=== PATIENT | female | born 1930 | race Caucasian/White ===

== ENCOUNTER 2017-07-26 07:51 | Inpatient (IN) | payer MEDICARE ==
[2017-07-26] VITALS (7 sets, daily range): BP systolic 123–178; BP diastolic 60–87; PULSE 63–73; RESP 16–18; TEMP 97.7–97.9; O2SAT 93–96
[~2017-07-26] VITALS: Ht 165.1 cm; Wt 86.4 kg
[2017-07-26] MEDS ORDERED: PHEN0.4T PO (08:15)
[2017-07-26] MEDS ORDERED: LEVO.1 PO (08:15)
[2017-07-26] MEDS ORDERED: BACT400T PO (08:15)
[2017-07-26] MEDS ORDERED: LISI10TA PO (08:15)
[2017-07-26] MEDS ORDERED: OMEP2.5S PO (08:15)
--- NOTE | 2017-07-26 08:15 | PD ---
HPI Chief Complaint: Complaint Time Seen by Provider: 08:05 Travel History International Travel<30 days: No Contact w/Intl Traveler<30days: No Traveled to known affect area: No History of Present Illness HPI 86 y/o female states for 4 days she has been having symptoms of nausea and general ill feeling. She went to an urgent care and was diagnosed with a urinary tract infection a couple days ago. She has had 2 days of antibiotics and now she is vomiting. She states she has had antibiotics upset her stomach before. She denies any fever or other specific complaints at this time. She was given Zofran prior to arrival. Quality is nonbloody. Severity is a couple of episodes. She denies specific modifying factors. PFSH Past Medical History Hx Anticoagulant Therapy: No Cardiovascular Problems: No Chemotherapy: No Cerebrovascular Accident: No Diabetes: No Hypertension: Yes Respiratory: No Thyroid Disease: Yes Tetanus Vaccination: < 5 Years Influenza Vaccination: Yes Past Surgical History Cholecystectomy: Yes Hysterectomy: No Tonsillectomy: Yes Social History Alcohol Use: No Tobacco Use: No Substance Use: No Allergies-Medications (Allergen,Severity, Reaction): Coded Allergies: ciprofloxacin (Verified Adverse Reaction, Severe, Diarrhea, 07/26/17) levofloxacin (Verified Adverse Reaction, Severe, Cramping, 07/26/17) Reported Meds & Prescriptions Reported Meds & Active Scripts Active Reported Prilosec (Omeprazole Magnesium) 2.5 Mg Pow Unknown Dose PO DAILY Pyridium (Phenazopyridine HCl) 100 Mg Tab 100 Mg PO Q8H PRN Bactrim (Sulfamethoxazole-Trimethoprim) 400-80 Mg Tab Unknown Dose PO BID Lisinopril-Hctz 10-12.5 Mg Tab 1 Tab PO DAILY Synthroid (Levothyroxine Sodium) 100 Mcg Tab 100 Mcg PO DAILY Review of Systems Except as stated in HPI: all other systems reviewed are Neg Physical Exam Narrative GENERAL: 86-year-old female in no apparent distress SKIN: Focused skin assessment warm/dry. HEAD: Atraumatic. Normocephalic. EYES: Pupils equal and round. No scleral icterus. No injection or drainage. ENT: No nasal bleeding or discharge. Mucous membranes pink and moist. NECK: Trachea midline. No JVD. CARDIOVASCULAR: Regular rate and rhythm. RESPIRATORY: No accessory muscle use. Clear to auscultation. Breath sounds equal bilaterally. GASTROINTESTINAL: Abdomen soft, mild ttp in epigastric area, nondistended. MUSCULOSKELETAL: No obvious deformities. No clubbing. No cyanosis. No edema. NEUROLOGICAL: Awake and alert. No obvious cranial nerve deficits. Motor grossly within normal limits. Normal speech. PSYCHIATRIC: Appropriate mood and affect; insight and judgment normal. Data Data Last Documented VS Vital Signs Date Time Temp Pulse Resp B/P (MAP) Pulse Ox O2 Delivery O2 Flow Rate FiO2 07/26/17 09:45 67 16 164/75 (104) 96 Room Air 07/26/17 07:54 97.7 Orders Orders Complete Blood Count With Diff (07/26/17 08:06) Comprehensive Metabolic Panel (07/26/17 08:06) Lactic Acid Sepsis Protocol (07/26/17 08:06) Lipase (07/26/17 08:06) Urinalysis - C+S If Indicated (07/26/17 08:06) Ecg Monitoring (07/26/17 08:06) Iv Access Insert/Monitor (07/26/17 08:06) Oximetry (07/26/17 08:06) Ct Abd/Pel W/O Iv Contrast (07/26/17 ) Sodium Chlor 0.9% 1000 Ml Inj (Ns 1000 M (07/26/17 09:15) Ondansetron Inj (Zofran Inj) (07/26/17 09:30) Urine Culture (07/26/17 09:00) Ceftriaxone Inj (Rocephin Inj) (07/26/17 09:45) Admit Order (Ed Use Only) (07/26/17 09:48) Admit To Inpatient (07/26/17 ) Vital Signs (Adult) JARED.Q4H (07/26/17 09:48) Activity Oob With Assistance (07/26/17 09:48) Contact Finger Assembler / Telemetry JARED.Q8H (07/26/17 09:48) Intake + Output 06,14,22 (07/26/17 09:48) Inpatient Certification (07/26/17 ) ^ Fall Precautions (07/26/17 09:48) Labs Laboratory Tests Test 07/26/17 08:15 07/26/17 09:00 White Blood Count 6.0 TH/MM3 Red Blood Count 5.51 MIL/MM3 Hemoglobin 14.1 GM/DL Hematocrit 43.5 % Mean Corpuscular Volume 79.0 FL Mean Corpuscular Hemoglobin 25.6 PG Mean Corpuscular Hemoglobin Concent 32.5 % Red Cell Distribution Width 13.5 % Platelet Count 203 TH/MM3 Mean Platelet Volume 8.1 FL Neutrophils (%) (Auto) 85.3 % Lymphocytes (%) (Auto) 11.1 % Monocytes (%) (Auto) 3.4 % Eosinophils (%) (Auto) 0.1 % Basophils (%) (Auto) 0.1 % Neutrophils # (Auto) 5.1 TH/MM3 Lymphocytes # (Auto) 0.7 TH/MM3 Monocytes # (Auto) 0.2 TH/MM3 Eosinophils # (Auto) 0.0 TH/MM3 Basophils # (Auto) 0.0 TH/MM3 CBC Comment DIFF FINAL Differential Comment Blood Urea Nitrogen 12 MG/DL Creatinine 0.79 MG/DL Random Glucose 121 MG/DL Total Protein 7.4 GM/DL Albumin 3.7 GM/DL Calcium Level 9.4 MG/DL Alkaline Phosphatase 70 U/L Aspartate Amino Transf (AST/SGOT) 20 U/L Alanine Aminotransferase (ALT/SGPT) 18 U/L Total Bilirubin 0.8 MG/DL Sodium Level 121 MEQ/L Potassium Level 4.2 MEQ/L Chloride Level 88 MEQ/L Carbon Dioxide Level 23.4 MEQ/L Anion Gap 10 MEQ/L Estimat Glomerular Filtration Rate 69 ML/MIN Lactic Acid Level 0.8 mmol/L Lipase 92 U/L Urine Collection Type CLEAN CATCH Urine Color YELLOW Urine Turbidity CLEAR Urine pH 7.0 Urine Specific [place] 1.016 Urine Protein 30 mg/dL Urine Glucose (UA) NEG mg/dL Urine Ketones 15 mg/dL Urine Occult Blood TRACE Urine Nitrite POS Urine Bilirubin NEG Urine Leukocyte Esterase NEG Urine RBC 4-9 /hpf Urine WBC 9-14 /hpf Urine WBC Clumps RARE Urine Squamous Epithelial Cells 6-8 /hpf Urine Transitional Epithelial Cells 0-5 /hpf Urine Amorphous Sediment FEW Urine Bacteria FEW /hpf Urine Hyaline Casts 0-2 /lpf Microscopic Urinalysis Comment CULTURE INDICATED Urine Collection Time 0900 [facility] Medical Decision Making Medical Screen Exam Complete: Yes Emergency Medical Condition: Yes Medical Record Reviewed: Yes (h confirmed) Interpretation(s) CBC & BMP Diagram 07/26/17 08:15 Total Protein 7.4, Albumin 3.7, Calcium Level 9.4, Alkaline Phosphatase 70, Aspartate Amino Transf (AST/SGOT) 20, Alanine Aminotransferase (ALT/SGPT) 18, Total Bilirubin 0.8 Last 24 hours Impressions Abdomen/Pelvis CT 07/26/17 0000 Signed Impressions: Service Date/Time: Wednesday, July 26, 2017 08:44 - CONCLUSION: 1. No acute inflammatory process. 2. Multiple hepatic low densities likely benign. 3. Bilateral renal cysts. Eduardo Saldana MD Differential Diagnosis UTI, stone, renal failure, pancreatitis, gastroenteritis, medication effect Narrative Course We will check blood work, urinalysis, CT scan abdomen and pelvis and reevaluate.. ed workup with persistent uti, given rocephin, labs with critical hyponatremia, daughter who is power of vehicle mechanic states she had that before and [place] and they took her off her diuretic and improved. The patient states she is back on her diuretic. They were updated and they agree to admission in the hospital. Physician Communication Physician Communication dr black agrees to admit Diagnosis Primary Impression: Hyponatremia Additional Impressions: UTI (urinary tract infection) Qualified Codes: N39.0 - Urinary tract infection, site not specified Vomiting Qualified Codes: R11.2 - Nausea with vomiting, unspecified Admitting Information Admitting Physician Requests: Admit Amanda Vinson MD Jul 26, 2017 08:15
[2017-07-26 08:30] LABS: AUTOMATED NEUTROPHIL # 5.1 TH/MM3 (1.8-7.7); BASOPHIL % 0.1 % (0.0-2.0); EOSINOPHIL % 0.1 % (0.0-4.0); HEMATOCRIT 43.5 % (35.0-46.0); HEMOGLOBIN 14.1 GM/DL (11.6-15.3); LYMPH % 11.1 % (9.0-44.0); LYMPHOCYTE # 0.7 TH/MM3 (1.0-4.8); MEAN CORPUSCULAR HEMOGLOBIN 25.6 PG (27.0-34.0); MEAN CORPUSCULAR HGB CONC 32.5 % (32.0-36.0); MEAN PLATELET VOLUME 8.1 FL (7.0-11.0); MONO % 3.4 % (0.0-8.0); MONOCYTE # 0.2 TH/MM3 (0-0.9); NEUT % 85.3 % (16.0-70.0); PLATELET COUNT 203 TH/MM3 (150-450); RED BLOOD COUNT 5.51 MIL/MM3 (4.00-5.30); RED CELL DISTRIBUTION WIDTH 13.5 % (11.6-17.2)
[2017-07-26 09:03] LABS: ALBUMIN 3.7 GM/DL (3.4-5.0); ALKALINE PHOSPHATASE 70 U/L (45-117); ALT (GPT) 18 U/L (10-53); AST (GOT) 20 U/L (15-37); BICARBONATE 23.4 MEQ/L (21.0-32.0); BLOOD UREA NITROGEN 12 MG/DL (7-18); CALCIUM 9.4 MG/DL (8.5-10.1); CHLORIDE 88 MEQ/L (98-107); CREATININE 0.79 MG/DL (0.50-1.00); GLOMERULAR FILTRATION RATE 69 ML/MIN (>89); GLUCOSE,RANDOM 121 MG/DL (74-106); TOTAL BILIRUBIN ADULT 0.8 MG/DL (0.2-1.0); TOTAL PROTEIN 7.4 GM/DL (6.4-8.2)
--- NOTE | 2017-07-26 09:03 | RADRPT ---
EXAM DATE/TIME: 07/26/2017 08:44 [facility] COMPARISON: No previous studies available for comparison. INDICATIONS : Nausea and vomiting. ORAL CONTRAST: No oral contrast ingested. RADIATION DOSE: 21.56 CTDIvol (mGy) MEDICAL HISTORY : Hypertension. SURGICAL HISTORY : Tonsillectomy. Cholecystectomy. ENCOUNTER: Initial ACUITY: 4 - 6 days PAIN SCALE: 0/10 LOCATION: pelvis abdomen TECHNIQUE: Volumetric scanning of the abdomen and pelvis was performed. Using automated exposure control and ad justment of the mA and/or kV according to patient size, radiation dose was kept as low as reasonably achievable to obtain optimal diagnostic quality images. DICOM format image data is available electro nically for review and comparison. FINDINGS: LOWER LUNGS: The visualized lower lungs are clear. LIVER: Homogeneous density with multiple low-density lesions likely cysts. Cholecystectomy clips. There is no dilation of the biliary tree. SPLEEN: Normal size without lesion. PANCREAS: Within normal limits. KIDNEYS: Normal in size and shape. There is no mass, stone, or hydronephrosis. Bilobed left sided renal cysts measures 4 cm. Small right renal intensity along the upper pole. 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 ADRENAL GLANDS: Within normal limits. VASCULAR: There is no aortic aneurysm. BOWEL/MESENTERY: The stomach, small bowel, and colon demonstrate no acute abnormality. There is no free intraperitone al air or fluid. Minimal stranding in the mesentery with small mesenteric lymph nodes. Normal appendi x. ABDOMINAL WALL: Within normal limits. RETROPERITONEUM: There is no lymphadenopathy. BLADDER: No wall thickening or mass. REPRODUCTIVE: Within normal limits. INGUINAL: There is no lymphadenopathy or hernia. MUSCULOSKELETAL: Degenerative changes lumbar spine and both hips. Osteitis pubis. CONCLUSION: 1. No acute inflammatory process. 2. Multiple hepatic low densities likely benign. 3. Bilateral renal cysts. Eduardo Saldana MD on July 26, 2017 at 8:57 Board Certified Radiologist. This report was verified electronically.
[2017-07-26 09:04] LABS: SODIUM (NA) 121 MEQ/L (136-145)
[2017-07-26] MEDS ORDERED: SODIUM CHLOR 0.9% 1000 ML INJ 1,000 ML IV ONE (09:15)
[2017-07-26 09:25] LABS: BILIRUBIN, URINE NEG (NEG); BLOOD, URINE TRACE (NEG); GLUCOSE,URINE NEG (NEG); KETONE, URINE 15 mg/dL (NEG); NITRITE,URINE POS (NEG); URINE LEUKOCYTE ESTERASE NEG (NEG)
[2017-07-26 09:26] LABS: URINE COLOR YELLOW (YELLW/STRAW)
[2017-07-26 09:30] LABS: AMORPHOUS SEDIMENT, URINE FEW; BACTERIA, URINE FEW /hpf; HYALINE CAST, URINE 0-2 /lpf (RARE); TRANSITIONAL EPI CELLS, URINE 0-5 /hpf; WHITE BLOOD CELL CLUMPS RARE
[2017-07-26] MEDS ORDERED: ONDANSETRON HCL 4 MG/2 ML VIAL IV PUSH ONE (09:30)
[2017-07-26] MEDS ORDERED: cefTRIAXone INJ 1,000 MG in SODIUM CHLORIDE 0.9% INJ 100 ML IV ONE (09:45)
[2017-07-26] MEDS ORDERED: FLUO20CA12 PO (11:43)
[2017-07-26] MEDS ORDERED: PHENAZOPYRIDINE HCL 100 MG TAB PO PRN (14:15)
[2017-07-26] MEDS ORDERED: ONDANSETRON HCL 4 MG/2 ML VIAL IV PUSH PRN (14:15)
[2017-07-26] MEDS: LEVOTHYROXINE SODIUM 100 MCG TAB PO SCH (15:09)
[2017-07-26] MEDS: FLUoxetine HCL 20 MG CAP PO SCH (15:09)
--- NOTE | 2017-07-26 15:09 | HHI.HP ---
HPI Service [facility] Primary Care Physician Non-Staff Admission Diagnosis hyponatremia, uti, vomiting Diagnoses: Chief Complaint: Nausea and vomiting Travel History International Travel<30 Days: No Contact w/Intl Traveler <30 Da: No Traveled to Known Affected Are: No History of Present Illness 86-year-old white female being admitted for intractable nausea vomiting. Patient was in her usual state of health until sometime within the last week she began having UTI symptoms including dysuria and urgency. She went to an urgent care was prescribed Bactrim and after this starting that medication she began experiencing nausea vomiting diarrhea and abdominal pain. Her GI symptoms were severe enough to the point where she was unable to maintain even liquid p.o. intake, thus she was brought to the emergency department. Patient denies having any bloody emesis. Denies having any fevers but reports some subjective chills. Reports having a one-time episode of watery stool that was otherwise unremarkable. Patient states that she has had GI adverse reactions to ciprofloxacin and Levaquin in the past. Review of Systems Except as stated in HPI: all other systems reviewed are Neg Past Family Social History Past Medical History Hypertension Hyponatremia (unsure if this is recurrent, intermittent or chronic) Allergies: Coded Allergies: ciprofloxacin (Verified Adverse Reaction, Severe, Diarrhea, 07/26/17) levofloxacin (Verified Adverse Reaction, Severe, Cramping, 07/26/17) Family History Does have a first-degree relative with pancreatic cancer Social History Does report having a smoking history up until the age of 29 Physical Exam Vital Signs Vital Signs Date Time Temp Pulse Resp B/P (MAP) Pulse Ox O2 Delivery O2 Flow Rate FiO2 07/26/17 10:57 07/26/17 10:19 67 16 123/60 (81) 96 Room Air 07/26/17 09:45 67 16 164/75 (104) 96 Room Air 07/26/17 08:10 16 96 Room Air 07/26/17 07:54 97.7 64 16 178/76 (110) 96 Physical Exam VS: afebrile GENERAL: Lying in bed, awake, alert, no acute distress SKIN: Warm and dry. EYES: No scleral icterus. No injection or drainage. ENT: No nasal bleeding or discharge. Mucous membranes pink and moist. CARDIOVASCULAR: Regular rate and rhythm. no murmurs RESPIRATORY: No accessory muscle use. Clear to auscultation. Breath sounds equal bilaterally. GASTROINTESTINAL: Abdomen soft, minimal tenderness to palpation over abdomen diffusely Extremities: No clubbing, cyanosis, or edema. No obvious deformities. MUSCULOSKELETAL: adequate muscle bulk and tone for age and habitus NEUROLOGICAL: Awake and alert. No obvious cranial nerve deficits. No facial droop nor slurred speech noted. PSYCHIATRIC: Appropriate mood and affect; insight and judgment normal. Laboratory Laboratory Tests Test 07/26/17 08:15 07/26/17 09:00 White Blood Count 6.0 Red Blood Count 5.51 Hemoglobin 14.1 Hematocrit 43.5 Mean Corpuscular Volume 79.0 Mean Corpuscular Hemoglobin 25.6 Mean Corpuscular Hemoglobin Concent 32.5 Red Cell Distribution Width 13.5 Platelet Count 203 Mean Platelet Volume 8.1 Neutrophils (%) (Auto) 85.3 Lymphocytes (%) (Auto) 11.1 Monocytes (%) (Auto) 3.4 Eosinophils (%) (Auto) 0.1 Basophils (%) (Auto) 0.1 Neutrophils # (Auto) 5.1 Lymphocytes # (Auto) 0.7 Monocytes # (Auto) 0.2 Eosinophils # (Auto) 0.0 Basophils # (Auto) 0.0 CBC Comment DIFF FINAL Differential Comment Blood Urea Nitrogen 12 Creatinine 0.79 Random Glucose 121 Total Protein 7.4 Albumin 3.7 Calcium Level 9.4 Alkaline Phosphatase 70 Aspartate Amino Transf (AST/SGOT) 20 Alanine Aminotransferase (ALT/SGPT) 18 Total Bilirubin 0.8 Sodium Level 121 Potassium Level 4.2 Chloride Level 88 Carbon Dioxide Level 23.4 Anion Gap 10 Estimat Glomerular Filtration Rate 69 Lactic Acid Level 0.8 Lipase 92 Urine Collection Type CLEAN CATCH Urine Color YELLOW Urine Turbidity CLEAR Urine pH 7.0 Urine Specific [place] 1.016 Urine Protein 30 Urine Glucose (UA) NEG Urine Ketones 15 Urine Occult Blood TRACE Urine Nitrite POS Urine Bilirubin NEG Urine Leukocyte Esterase NEG Urine RBC 4-9 Urine WBC 9-14 Urine WBC Clumps RARE Urine Squamous Epithelial Cells 6-8 Urine Transitional Epithelial Cells 0-5 Urine Amorphous Sediment FEW Urine Bacteria FEW Urine Hyaline Casts 0-2 Microscopic Urinalysis Comment CULTURE INDICATED Urine Collection Time 0900 Date/Time Source Procedure Growth Status 07/26/17 09:00 Urine Clean Catch Urine Culture Pending Received Result Diagram: 07/26/1781407/26/17814 Caprini VTE Risk Assessment Caprini VTE Risk Assessment: Mod/High Risk (score >= 2) Caprini Risk Assessment Model Point Value = 1 Point Value = 2 Point Value = 3 Point Value = 5 Age 41-60 Minor surgery BMI > 25 kg/m2 Swollen legs Varicose veins or History of unexplained or recurrent spontaneous Oral contraceptives or hormone replacement Sepsis (< 1 month) Serious lung disease, including pneumonia (< 1 month) Abnormal pulmonary function Acute myocardial infarction Congestive heart failure (< 1 month) History of inflammatory bowel disease Medical patient at bed rest Age 61-74 Arthroscopic surgery Major open surgery (> 45 min) Laparoscopic surgery (> 45 min) Malignancy Confined to bed (> 72 hours) Immobilizing plaster cast Central venous access Age >= 75 History of VTE Family history of VTE Factor V Leiden Prothrombin [id number] Lupus anticoagulant Anticardiolipin antibodies Elevated serum homocysteine Heparin-induced thrombocytopenia Other congenital or acquired thrombophilia Stroke (< 1 month) Elective arthroplasty Hip, pelvis, or leg fracture Acute spinal cord injury (< 1 month) Prophylaxis Regimen Total Risk Factor Score Risk Level Prophylaxis Regimen 0-1 Low Early ambulation 2 Moderate Order ONE of the following: *Sequential Compression Device (SCD) *Heparin 5000 units SQ BID 3-4 Higher Order ONE of the following medications: *Heparin 5000 units SQ TID *Enoxaparin/Lovenox 40 mg SQ daily (WT < 150 kg, CrCl > 30 mL/min) *Enoxaparin/Lovenox 30 mg SQ daily (WT < 150 kg, CrCl > 10-29 mL/min) *Enoxaparin/Lovenox 30 mg SQ BID (WT < 150 kg, CrCl > 30 mL/min) AND/OR *Sequential Compression Device (SCD) 5 or more Highest Order ONE of the following medications: *Heparin 5000 units SQ TID (Preferred with Epidurals) *Enoxaparin/Lovenox 40 mg SQ daily (WT < 150 kg, CrCl > 30 mL/min) *Enoxaparin/Lovenox 30 mg SQ daily (WT < 150 kg, CrCl > 10-29 mL/min) *Enoxaparin/Lovenox 30 mg SQ BID (WT < 150 kg, CrCl > 30 mL/min) AND *Sequential Compression Device (SCD) Assessment and Plan Assessment and Plan Intractable nausea vomiting - Most likely adverse reaction to Bactrim but could also be acute viral gastroenteritis as well as being contributed to partially by urinary tract infection - Lipase negative, CMP is unremarkable, CT neg - clear liquid trial w/ iv antiemetics UTI - Continue with Rocephin, await cultures Suspected acute on possible chronic hyponatremia - Likely secondary to poor p.o. intake, cautious rehydration to avoid rapid correction, already received bolus in ED - will stop home hctz, just continue lisinopril only Continue home fluoxetine and Synthroid lovenox Physician Certification 2 Midnight Certification Type: Admission for Inpatient Services (2) Order for Inpatient Services The services are ordered in accordance with Medicare regulations or non- Medicare payer requirements, as applicable. In the case of services not specified as inpatient-only, they are appropriately provided as inpatient services in accordance with the 2-midnight benchmark. Estimated LOS (days): 2 2 days is the estimated time the patient will need to remain in the hospital, assuming treatment plan goals are met and no additional complications. Post-Hospital Plan: Not yet determined Bridger Bingham MD Jul 26, 2017 15:09
[2017-07-26] MEDS ORDERED: SODIUM CHLOR 0.9% 1000 ML INJ 1,000 ML IV SCH (15:15)
[2017-07-26] MEDS: ENOXAPARIN SODIUM 30 MG/0.3 ML SYRINGE SQ SCH (20:44)
[2017-07-27] VITALS: BP 102/55; PULSE 55; RESP 18; TEMP 97.5; O2SAT 98
[2017-07-27 04:00] VITALS: BP 111/53; PULSE 57; RESP 18; TEMP 96.9; O2SAT 98
[2017-07-27] MEDS: LEVOTHYROXINE SODIUM 100 MCG TAB PO SCH (06:12)
[2017-07-27 07:01] LABS: BICARBONATE 25.8 MEQ/L (21.0-32.0); CALCIUM 8.8 MG/DL (8.5-10.1); CREATININE 0.68 MG/DL (0.50-1.00)
[2017-07-27 08:00] VITALS: BP 139/76; PULSE 57; RESP 16; TEMP 97.1; O2SAT 97
[2017-07-27] MEDS: cefTRIAXone INJ 1,000 MG in SODIUM CHLORIDE 0.9% INJ 100 ML IV SCH (10:21)
[2017-07-27] MEDS: FLUoxetine HCL 20 MG CAP PO SCH (10:21)
--- NOTE | 2017-07-27 11:54 | HHI.PR ---
Subjective Remarks Nursing denies any deterioration since last night. Patient herself says she feels fine. Has not had any nausea. Denies any dysuria urgency symptoms this morning. Objective Vital Signs Date Time Temp Pulse Resp B/P (MAP) Pulse Ox O2 Delivery O2 Flow Rate FiO2 07/27/17 08:00 97.1 57 16 139/76 (97) 97 07/27/17 04:00 96.9 57 18 111/53 (72) 98 07/27/17 00:00 97.5 55 18 102/55 (71) 98 07/26/17 20:03 63 07/26/17 20:00 97.9 73 18 123/87 (99) 93 07/26/17 16:57 64 I/O 07/26/17 07/26/17 07/26/17 07/27/17 07/27/17 07/27/17 07:00 15:00 23:00 07:00 15:00 23:00 Intake Total 1100 ml 211 ml 513 ml Balance 1100 ml 211 ml 513 ml Intake Oral 120 ml IV Total 1100 ml 211 ml 393 ml # Voids 1 1 3 Result Diagram: 07/26/17 0815 07/27/17 0545 Objective Remarks No abdominal tenderness, abdomen soft, nondistended Sitting up in bed, lungs are clear bilaterally, no distress A/P Assessment and Plan Intractable nausea vomiting -Much improved - etiology most likely adverse reaction to Bactrim but could also be acute viral gastroenteritis as well as urinary tract infection - Lipase negative, CMP is unremarkable, CT neg - clear liquid trial w/ iv antiemetics UTI - Continue with Rocephin, await cultures Suspected acute on possible chronic hyponatremia - Likely secondary to poor p.o. intake, cautious rehydration to avoid rapid correction, already received bolus in ED -Significantly improved, stopping IV fluids, continue lisinopril, patient did not resume HCTZ upon discharge Continue home fluoxetine and Synthroid lovenox Bridger Bingham MD Jul 27, 2017 11:54
[2017-07-27 12:00] VITALS: BP 127/79; PULSE 64; RESP 16; TEMP 97.6; O2SAT 95
[2017-07-27] MEDS ORDERED: CEFUROXIME AXETIL 250 MG TAB PO ONE (12:00)
[2017-07-27] MEDS: LISINOPRIL 5 MG TAB PO SCH (13:30)
[2017-07-27 16:00] VITALS: BP 130/78; PULSE 59; RESP 16; TEMP 97; O2SAT 97
[2017-07-27 20:00] VITALS: BP 148/84; PULSE 63; RESP 16; TEMP 96.8; O2SAT 98
[2017-07-27] MEDS: ENOXAPARIN SODIUM 30 MG/0.3 ML SYRINGE SQ SCH (21:03)
[2017-07-28] VITALS: BP 141/78; PULSE 58; RESP 16; TEMP 97.1; O2SAT 98
[2017-07-28] MEDS: LEVOTHYROXINE SODIUM 100 MCG TAB PO SCH (05:35)
[2017-07-28 06:18] LABS: CALCIUM 8.9 MG/DL (8.5-10.1)
[2017-07-28 06:19] LABS: BICARBONATE 24.7 MEQ/L (21.0-32.0)
[2017-07-28 06:22] LABS: CREATININE 0.61 MG/DL (0.50-1.00)
[2017-07-28 08:00] VITALS: BP 167/79; PULSE 65; RESP 16; TEMP 97.8; O2SAT 96
[2017-07-28] MEDS: cefTRIAXone INJ 1,000 MG in SODIUM CHLORIDE 0.9% INJ 100 ML IV SCH (10:07)
[2017-07-28] MEDS: LISINOPRIL 5 MG TAB PO SCH (10:07)
[2017-07-28] MEDS: FLUoxetine HCL 20 MG CAP PO SCH (10:07)
[2017-07-28] MEDS ORDERED: LISI-519 PO (10:51)
--- NOTE | 2017-07-28 10:52 | HHI.DCPOC ---
Discharge Care Plan Diagnosis: (1) UTI (urinary tract infection) Goals to Promote Your Health * To prevent worsening of your condition and complications * To maintain your health at the optimal level Directions to Meet Your Goals Take your medications as prescribed Follow your dietary instruction Follow activity as directed Keep your appointments as scheduled Take your immunizations and boosters as scheduled If your symptoms worsen call your PCP, if no PCP go to Urgent Care Center or Emergency Room Smoking is Dangerous to Your Health. Avoid second hand smoke Call the 24-hour hour crisis hotline for domestic abuse at Bridger Bingham MD Jul 28, 2017 10:52
[2017-07-28] MEDS ORDERED: CEFU1TAB20 PO (10:53)
--- NOTE | 2017-07-28 11:35 | HHI.DS ---
Discharge Summary Admission Date Jul 26, 2017 at 09:49 Discharge Date: Jul 28, 2017 Admitting Diagnosis hyponatremia, uti, vomiting (1) Vomiting ICD Code: R11.10 - Vomiting, unspecified Status: Acute (2) UTI (urinary tract infection) ICD Code: N39.0 - Urinary tract infection, site not specified Status: Acute (3) Hyponatremia ICD Code: E87.1 - Hypo-osmolality and hyponatremia Status: Acute Procedures none Brief History - From Admission 86-year-old white female being admitted for intractable nausea vomiting. Patient was in her usual state of health until sometime within the last week she began having UTI symptoms including dysuria and urgency. She went to an urgent care was prescribed Bactrim and after this starting that medication she began experiencing nausea vomiting diarrhea and abdominal pain. Her GI symptoms were severe enough to the point where she was unable to maintain even liquid p.o. intake, thus she was brought to the emergency department. Patient denies having any bloody emesis. Denies having any fevers but reports some subjective chills. Reports having a one-time episode of watery stool that was otherwise unremarkable. Patient states that she has had GI adverse reactions to ciprofloxacin and Levaquin in the past. CBC/BMP: 07/26/17 0815 07/28/17 0520 Significant Findings Laboratory Tests Test 07/26/17 08:15 07/26/17 09:00 07/26/17 20:33 07/27/17 05:45 Red Blood Count 5.51 MIL/MM3 (4.00-5.30) Mean Corpuscular Volume 79.0 FL (80.0-100.0) Mean Corpuscular Hemoglobin 25.6 PG (27.0-34.0) Neutrophils (%) (Auto) 85.3 % (16.0-70.0) Lymphocytes # (Auto) 0.7 TH/MM3 (1.0-4.8) Random Glucose 121 MG/DL (74-106) Sodium Level 121 MEQ/L (136-145) 125 MEQ/L (136-145) 130 MEQ/L (136-145) Chloride Level 88 MEQ/L (98-107) Estimat Glomerular Filtration Rate 69 ML/MIN (>89) 82 ML/MIN (>89) Urine Protein 30 mg/dL (NEG-TRACE) Urine Ketones 15 mg/dL (NEG) Urine Nitrite POS (NEG) Urine RBC 4-9 /hpf (0-3) Urine WBC 9-14 /hpf (0-5) Urine WBC Clumps RARE (NONE) Urine Squamous Epithelial Cells 6-8 /hpf (0-5) Urine Bacteria FEW /hpf (NONE) Test 07/28/17 05:20 Sodium Level 132 MEQ/L (136-145) PE at Discharge No suprapubic tenderness to palpation, no acute distress, ambulating, awake, alert Hospital Course Patient was admitted, started on antibiotics and normal saline. Patient's sodium improved and her urinary symptoms resolved. She was tolerating p.o. intake well with resolution of her nausea. Patient has been maximal benefit from hospitalization and is clinically stable for discharge. She was discontinued off of Zestoretic and instructed to only continue with her new prescription for lisinopril for the time being to help minimize any further episodes of hyponatremia. Pt Condition on Discharge: Stable Discharge Disposition: Discharge Home Discharge Time: <= 30 minutes Discharge Instructions DIET: Follow Instructions for: Heart Healthy Diet Activities you can perform: Regular-No Restrictions Follow up Referrals: PCP Follow-up - 10 Days New Medications: Cefuroxime (Cefuroxime) 500 Mg Tab 500 MG PO BID for Infection, #7 TAB 0 Refills Lisinopril (Lisinopril) 5 Mg Tab 5 MG PO DAILY for Blood Pressure Management, #30 TAB 0 Refills Continued Medications: Fluoxetine (Fluoxetine) 20 Mg Capsule 20 MG PO DAILY, #30 CAP 0 Refills Levothyroxine (Synthroid) 100 Mcg Tab 100 MCG PO DAILY for Thyroid, #30 TAB 0 Refills Omeprazole Magnesium (Prilosec) 2.5 Mg Pow Unknown Dose PO DAILY Phenazopyridine (Pyridium) 100 Mg Tab 100 MG PO Q8H PRN for DYSURIA, TAB 0 Refills Discontinued Medications: Lisinopril-Hctz (Lisinopril-Hctz) 10-12.5 Mg Tab 1 TAB PO DAILY for Blood Pressure Management, #30 TAB 0 Refills Sulfamethoxazole-Trimethoprim (Bactrim) 400-80 Mg Tab Unknown Dose PO BID for Infection, TAB 0 Refills Bridger Bingham MD Jul 28, 2017 11:35
[2017-07-28 12:00] VITALS: BP 133/69; PULSE 60; RESP 16; TEMP 97; O2SAT 98
== END 2017-07-28 12:45 | disposition home or self-care (01) | DRG 394 ==
LOC: PHED 07:51 → PHEDA 09:49 → PH3B 11:02
PROVIDERS: ADMIT Hospitalist; ATTEND Hospitalist
DX: K52.1 Toxic gastroenteritis and colitis (principal); N39.0 Urinary tract infection, site not specified; E87.1 Hypo-osmolality and hyponatremia; I10 Essential (primary) hypertension; T37.0X5A Adverse effect of sulfonamides, initial encounter; R11.2 Nausea with vomiting, unspecified; Z88.1 Allergy status to other antibiotic agents; Z87.891 Personal history of nicotine dependence
CPT/HCPCS: 74176; 80048; 80053; 81001; 83605; 83690; 84295; 84443; 85025; 87086; 96374; J0696; J1650; J2405; J7030